=== PATIENT | male | born 1985 | race Caucasian/White ===

== ENCOUNTER 2017-10-27 12:04 | Emergency (ER) | payer SELFPAY ==
[2017-10-27] MEDS: AUGMENTIN 875 MG TAB PO (15:01)
[2017-10-27] MEDS: NORCO, ANEXSIA 5/325MG TABLET (HYDROcodone/ACETAMINOPHEN) PO (15:01)
== END 2017-10-27 15:16 | disposition home or self-care (01) ==
LOC: M ED 12:04
DX: H60.12 Cellulitis of left external ear (principal); Z79.2 Long term (current) use of antibiotics
CPT/HCPCS: 99283

== ENCOUNTER → 2019-02-26 | Outpatient (CLI) | payer SELFPAY ==
[~2019-02-26] MED LIST: AUGM875T28 PO; GENT0.3S36 OD; HYDR-3715 PO; KETO10TAB PO; NEOM1SOL13 OTIC
--- NOTE | 2019-02-27 03:22 | REP ---
Clinical: Contusion . Technique: AP, lateral, bilateral oblique views of the right elbow. Findings: No acute fracture or dislocation is appreciated. Oblique and lateral views best demonstrate small amount of swelling and possible subcutaneous emphysema along the posterior elbow suggesting laceration and area of contusion. Impression: No acute fracture or dislocation. Electronically Signed by Jimy Livingston MD 02/27/2019 03:13 A
== END ==
LOC: M WUC 16:29
PROVIDERS: ATTEND Physician Assistant
DX: S50.01XA Contusion of right elbow, initial encounter (principal); X58.XXXA Exposure to other specified factors, initial encounter

== ENCOUNTER 2019-05-15 17:52 | Emergency (ER) | payer SELFPAY ==
[~2019-05-15] VITALS: Ht 195.6 cm; Wt 143.2 kg
[2019-05-15] MEDS ORDERED: ZOFR4TAB16 PO (18:03)
[2019-05-15 20:47] LABS: INFLUENZA A AMPLIFICATION NEGATIVE (NEGATIVE); INFLUENZA B AMPLIFICATION NEGATIVE (NEGATIVE)
[2019-05-15 20:56] VITALS: BP 166/90
[2019-05-15] MEDS ORDERED: AUGM875T28 PO (21:04)
[2019-05-15] MEDS ORDERED: AUGMENTIN 875 MG TAB PO ONE (21:15)
== END 2019-05-15 21:14 | disposition home or self-care (01) ==
LOC: M ED 17:52
DX: H66.93 Otitis media, unspecified, bilateral (principal)

== ENCOUNTER 2021-10-23 17:49 | Emergency (ER) | payer SELFPAY ==
[~2021-10-23] VITALS: Ht 195.6 cm; Wt 142.3 kg
[~2021-10-23 17:49] MED LIST changes: +ZOFR4TAB16 PO
[2021-10-23] MEDS ORDERED: LIDOCAINE 5% (LIDODERM) PATCH TD ONE (21:15)
[2021-10-23] MEDS ORDERED: predniSONE 20 MG TAB PO ONE (21:15)
[2021-10-23] MEDS ORDERED: KETOROLAC 30 MG/ML 1ML VIAL IM ONE (21:15)
[2021-10-23] MEDS ORDERED: MEDR4PAK PO (21:16)
[2021-10-23 21:49] VITALS: BP 140/100
[2021-10-24] MEDS ORDERED: **NOTE PATIENT COMMENT** MISC XX SCH ×2 (09:00→21:00)
== END 2021-10-23 21:51 | disposition home or self-care (01) ==
LOC: M ED 17:49
DX: M54.10 Radiculopathy, site unspecified (principal); Z87.09 Personal history of other diseases of the respiratory system
CPT/HCPCS: 96372; 99283; J1885; J7512